=== PATIENT | female | born 1960 | race Caucasian/White ===

== ENCOUNTER 2017-09-06 09:27 | Emergency (ER) | payer MEDICAID ==
[~2017-09-06] VITALS: Ht 180.3 cm; Wt 137.8 kg
[~2017-09-06 09:27] MED LIST: ALBUTEROL SUL0.083 % IN; BACTRIM DS1 TAB PO; CIPRO500 MG OR; COQ1030 MG PO; DUONEB IN; FISH OIL1 CAP; FLEXERIL OR; FLEXERIL5 MG PO; LORTAB 10-325 M1 TAB PO; LORTAB 5 OR; LORTAB 7.5 OR; MULTI VIT PO; NO HOME MEDS; PENICILLN VK500 M1 OR; PENICILLN VK500 MG OR; PERCOCET 5/321 COMBO PO; PERCOCET 5/325M1 TAB OR; PROAIR HFA IN; PROVENTIL HFA IN; PROVENTIL HFA INH; PROVENTIL IN; PROVENTIL INH17 GM IN; PROVENTIL0.083 % IN; SPIRIVA HANDIHALER IN; TRAMADOL HCL50 MG OR; TRAMADOL HCL50 MG PO; ULTRAM50 M1 PO; ULTRAM50 MG OR; ULTRAM50 MG PO; VENTOLIN HF1 IN; [UNRECOGNIZED DRUG - OTHER] PO
[2017-09-06] MEDS ORDERED: KEFLEX500 MG PO (10:20)
[2017-09-06] MEDS ORDERED: BENADRYL 50MG C50 MG PO (10:20)
[2017-09-06] MEDS ORDERED: PREDNISONE50 MG PO (10:20)
[2017-09-06] MEDS ORDERED: SPIRIVA HANDIH18 MCG IN (10:22)
[2017-09-06] MEDS ORDERED: PROVENTIL108 MCG/AC IN (10:22)
[2017-09-06] MEDS ORDERED: OMEGA 31000 MG PO (10:24)
[2017-09-06 10:30] VITALS: BP 147/89
== END 2017-09-06 10:30 | disposition home or self-care (01) | DRG 916 ==
LOC: ED 09:27
DX: T78.40XA Allergy, unspecified, initial encounter (principal); L03.114 Cellulitis of left upper limb; L03.113 Cellulitis of right upper limb; X58.XXXA Exposure to other specified factors, initial encounter; R21 Rash and other nonspecific skin eruption; J44.9 Chronic obstructive pulmonary disease, unspecified; F17.210 Nicotine dependence, cigarettes, uncomplicated

== ENCOUNTER 2018-05-09 11:45 | Emergency (ER) | payer MEDICARE, MEDICAID ==
[~2018-05-09] VITALS: Ht 180.3 cm; Wt 131.8 kg
[~2018-05-09 11:45] MED LIST changes: +BENADRYL 50MG C50 MG PO; +KEFLEX500 MG PO; +OMEGA 31000 MG PO; +PREDNISONE50 MG PO; +PROVENTIL108 MCG/AC IN; +SPIRIVA HANDIH18 MCG IN
[2018-05-09] MEDS ORDERED: COQ-1050 MG PO (12:15)
[2018-05-09 13:37] VITALS: BP 154/97
[2018-05-09] MEDS ORDERED: VENTOLIN HFA IN (13:42)
[2018-05-09] MEDS ORDERED: PREDNISONE20 MG PO (13:42)
[2018-05-09] MEDS ORDERED: AMOXICILLIN875 MG PO (13:42)
[2018-05-09] MEDS ORDERED: TESSALON PER100 MG PO (13:42)
[2018-05-09] MEDS ORDERED: TRAMADOL HYDROC50 MG PO (13:42)
[2018-05-09] MEDS ORDERED: ZITHROMAX500 MG PO (13:42)
== END 2018-05-09 13:37 | disposition home or self-care (01) ==
LOC: ED 11:45
DX: R05 Cough (principal); J44.9 Chronic obstructive pulmonary disease, unspecified; M54.9 Dorsalgia, unspecified; F17.200 Nicotine dependence, unspecified, uncomplicated

== ENCOUNTER → 2018-06-09 | Outpatient (REF) | payer MEDICARE, MEDICAID ==
[~2018-06-09] MED LIST changes: +AMOXICILLIN875 MG PO; +COQ-1050 MG PO; +PREDNISONE20 MG PO; +TESSALON PER100 MG PO; +TRAMADOL HYDROC50 MG PO; +VENTOLIN HFA IN; +ZITHROMAX500 MG PO
== END | disposition home or self-care (01) ==
LOC: MAMMO 10:05
PROVIDERS: ATTEND Physician Assistant Medical
DX: Z12.31 Encounter for screening mammogram for malignant neoplasm of breast (principal); N95.1 Menopausal and female climacteric states

== ENCOUNTER 2018-07-20 11:01 | Emergency (ER) | payer MEDICARE, MEDICAID ==
[~2018-07-20] VITALS: Ht 180.3 cm; Wt 137.7 kg
[2018-07-20] MEDS ORDERED: SYMBICORT1 AE1 IN (11:31)
[2018-07-20] MEDS ORDERED: LOSARTAN POT50 MG PO (11:32)
[2018-07-20] MEDS ORDERED: KEFLEX500 M1 PO (11:48)
[2018-07-20] MEDS ORDERED: BACTROBAN TOP (11:48)
[2018-07-20 12:02] VITALS: BP 141/86
== END 2018-07-20 12:02 | disposition home or self-care (01) ==
LOC: ED 11:01
DX: S60.562A Insect bite (nonvenomous) of left hand, initial encounter (principal); L03.114 Cellulitis of left upper limb; L29.9 Pruritus, unspecified; W57.XXXA Bitten or stung by nonvenomous insect and other nonvenomous arthropods, initial encounter; Y92.009 Unspecified place in unspecified non-institutional (private) residence as the place of occurrence of the external cause

== ENCOUNTER 2018-10-29 06:13 | Day surgery (SDC) | payer MEDICARE, MEDICAID ==
[~2018-10-29] VITALS: Ht 180.3 cm; Wt 149.7 kg
[~2018-10-29 06:13] MED LIST changes: +BACTROBAN TOP; +KEFLEX500 M1 PO; +LOSARTAN POT50 MG PO; +SYMBICORT1 AE1 IN
[2018-10-29 07:49] VITALS: BP 122/69
[2018-11-11] MEDS ORDERED: TRAMADOL HCL50 MG PO (09:59)
== END 2018-10-29 08:10 | disposition home or self-care (01) ==
LOC: ORM 06:13
PROVIDERS: ATTEND Anesthesiology Pain Medicine
PROC: 3E0U33Z Introduction of Anti-inflammatory into Joints, Percutaneous Approach (ICD-10-PCS; principal; 2018-10-29)
PROC: 3E0U3BZ Introduction of Anesthetic Agent into Joints, Percutaneous Approach (ICD-10-PCS; 2018-10-29)
DX: M46.1 Sacroiliitis, not elsewhere classified (principal)

== ENCOUNTER 2019-01-14 10:44 | Emergency (ER) | payer MEDICARE, MEDICAID ==
[~2019-01-14] VITALS: Ht 180.3 cm; Wt 145.4 kg
[2019-01-14 11:21] LABS: IMMATURE GRANULOCYTES 0.4 % (0.0-5.0); MEAN CORPUSCULAR HGB 31.5 pG CALC (26.0-32.0); MEAN CORPUSCULAR HGB CONC 32.3 g/L CALC (32.0-36.0); NEUT# 2.7 thou/uL (2.00-7.15); RED BLOOD COUNT 5.69 mill/uL (4.20-5.60); RED CELL DISTRI WIDTH 13.8 % (11.5-15.5)
[2019-01-14 11:27] LABS: HEMATOCRIT 55.4 % (37.0-47.0); HEMOGLOBIN 17.9 g/dl (12.0-16.0); MEAN CELL VOLUME 97.4 fL CALC (80.0-100.0)
[2019-01-14 12:10] LABS: ALBUMIN 4.2 g/dL (3.2-5.0); ALKALINE PHOSPHATASE 77 u/l (38-126); BILIRUBIN, TOTAL 0.8 mg/dL (0.0-1.4); BUN 7 mg/dL (7-17); BUN/CREATININE RATIO 14 (12-20 (CALC)); CHLORIDE 98 mmol/l (95-108); CREATININE 0.5 mg/dL (0.5-1.0); GFR > 60 ML/MIN (>=60 (CALC)); GFR FOR AFR.AMER. > 60 ML/MIN (>=60 (CALC)); SGOT/AST 35 u/l (14-36); SODIUM 135 mmol/l (137-146); TOTAL PROTEIN 7.6 g/dL (6.3-8.2)
[2019-01-14 12:15] LABS: ANION GAP 13 (6-22 (CALC)); CARBON DIOXIDE 29 mmol/l (22-30); POTASSIUM 4.7 mmol/l (3.5-5.1)
[2019-01-14] MEDS ORDERED: DOXYCYCL HYC100 MG PO (12:37)
[2019-01-14] MEDS ORDERED: STERAPRED DS10 MG PO (12:37)
[2019-01-14 12:58] VITALS: BP 149/72
== END 2019-01-14 13:03 | disposition home or self-care (01) ==
LOC: ED 10:44
PROVIDERS: Family Medicine
DX: J44.0 Chronic obstructive pulmonary disease with (acute) lower respiratory infection (principal); J44.1 Chronic obstructive pulmonary disease with (acute) exacerbation; I10 Essential (primary) hypertension; F17.200 Nicotine dependence, unspecified, uncomplicated

== ENCOUNTER 2019-11-15 20:00 | Emergency (ER) | payer MEDICARE, MEDICAID ==
[~2019-11-15] VITALS: Ht 180.3 cm; Wt 131.8 kg
[~2019-11-15 20:00] MED LIST changes: +DOXYCYCL HYC100 MG PO; -LOSARTAN POT50 MG PO; +LOSARTAN POTASS50 MG PO; +STERAPRED DS10 MG PO
[2019-11-15] MEDS ORDERED: VENTOLIN H108 MCG/AC IN (20:23)
[2019-11-15] MEDS ORDERED: ALENDRONATE SOD70 MG PO (20:24)
[2019-11-15] MEDS ORDERED: ADVAIR DISK1 IN (20:25)
[2019-11-15] MEDS ORDERED: HYDROCHLOROT12.5 MG PO (20:25)
[2019-11-15] MEDS ORDERED: IPRATROPIU0.5 MG/3 M IN (20:25)
[2019-11-15 20:49] LABS: HEMATOCRIT 55.1 % (37.0-47.0); HEMOGLOBIN 17.8 g/dl (12.0-16.0); IMMATURE GRANULOCYTES 0.3 % (0.0-5.0); MEAN CELL VOLUME 97.2 fL CALC (80.0-100.0); MEAN CORPUSCULAR HGB 31.4 pG CALC (26.0-32.0); MEAN CORPUSCULAR HGB CONC 32.3 g/dL CAL (32.0-36.0); NEUT# 4.61 thou/uL (2.00-7.15); RED BLOOD COUNT 5.67 mill/uL (4.20-5.60); RED CELL DISTRI WIDTH 13.7 % (11.5-15.5)
--- NOTE | 2019-11-15 20:54 | NUR ---
BREATHING TREATMENT GIVEN BACK TO BACK. BREATHING TECH. FOR GOOD DEPOSITION TO THE LUNGS.
[2019-11-15 21:36] VITALS: BP 142/64
[2019-11-15] MEDS ORDERED: DOXYCYCL HYC100 MG PO (21:53)
[2019-11-15] MEDS ORDERED: PREDNISONE50 MG PO (21:53)
== END 2019-11-15 22:00 | disposition home or self-care (01) ==
LOC: ED 20:00
PROVIDERS: Family Medicine
DX: J44.1 Chronic obstructive pulmonary disease with (acute) exacerbation (principal); I10 Essential (primary) hypertension; F17.200 Nicotine dependence, unspecified, uncomplicated; Z20.828 Contact with and (suspected) exposure to other viral communicable diseases

== ENCOUNTER 2020-09-17 05:37 | Observation (INO) | payer MEDICARE, MEDICAID ==
[~2020-09-17] VITALS: Ht 180.3 cm; Wt 141.0 kg
[~2020-09-17 05:37] MED LIST changes: +ADVAIR DISK1 IN; +ALENDRONATE SOD70 MG PO; +HYDROCHLOROT12.5 MG PO; +IPRATROPIU0.5 MG/3 M IN; +VENTOLIN H108 MCG/AC IN
--- NOTE | 2020-09-17 05:37 | NUR ---
BY EMS TO ROOM. MOVED TO STRETCHER INDEPENDENTLY.
[2020-09-17 06:08] LABS: IMMATURE GRANULOCYTES 0.2 % (0.0-5.0); MEAN CORPUSCULAR HGB CONC 35.3 g/dL CAL (32.0-36.0); NEUT# 3.13 thou/uL (2.00-7.15); RED BLOOD COUNT 5.62 mill/uL (4.20-5.60); RED CELL DISTRI WIDTH 12.2 % (11.5-15.5)
[2020-09-17 06:09] LABS: MEAN CELL VOLUME 90.7 fL CALC (80.0-100.0)
--- NOTE | 2020-09-17 06:30 | NUR ---
STATES FEELING BETTER. AWAITING DISPO.
[2020-09-17] MEDS ORDERED: TRELEGY ELLIPTA1 AER IN (06:31)
[2020-09-17] MEDS ORDERED: SYMBICORT1 AE1 IN (06:32)
--- NOTE | 2020-09-17 07:00 | NUR ---
RECEIVED REPORT FROM DALLIN
[2020-09-17] MEDS ORDERED: ALENDRONATE SOD70 MG PO (07:30)
[2020-09-17] MEDS ORDERED: INCRUSE EL62.5 MCG/I IN (07:30)
[2020-09-17] MEDS ORDERED: FLOVENT HF220 MCG/AC IN (07:30)
--- NOTE | 2020-09-17 07:59 | NUR ---
REPORT REC FROM Dejah LOPEZ RN
--- NOTE | 2020-09-17 07:59 | NUR ---
GAVE REPORT TO TONYA
[2020-09-17 08:10] VITALS: BP 149/81
--- NOTE | 2020-09-17 08:10 | NUR ---
PT SITTING IN BED. PT ALERT AND ORIENTED. VITALS AND ASSESMENT PERFORMED. S1 AND S2 HEARD. LUNGS SOUNDS CLEAR/DIMINISHED. PEDAL PULSES EQUALLY STRONG BILATERALLY. SKIN TEAR TO RIGHT FOREARM. PICTURE OBTAINED AND STERI STRIPS APPLIED.
--- NOTE | 2020-09-17 08:12 | NUR ---
PT ASSISTED UP TO MED SURG STABLE AND IN NO DISTRESS VIA W//C. BELONGINGS WITH HER. CARE ASSUMED TO Admission Note Report Given to: ELIAZAR Transported by: X Wheelchair Stretcher Transported with: X Nurse Transporter Patent IV O2 Engineering Officer Location: ICU X MS2
[2020-09-17 10:45] LABS: ALBUMIN 4.5 g/dL (3.2-5.0); ALKALINE PHOSPHATASE 81 u/l (38-126); BUN 7 mg/dL (7-17); BUN/CREATININE RATIO 19 (12-20 (CALC)); CARBON DIOXIDE 27 mmol/l (22-30); CREATININE 0.4 mg/dL (0.5-1.0); GFR > 60 ML/MIN (>=60 (CALC)); GFR FOR AFR.AMER. > 60 ML/MIN (>=60 (CALC)); SGOT/AST 43 u/l (14-36); TOTAL PROTEIN 7.8 g/dL (6.3-8.2)
--- NOTE | 2020-09-17 10:48 | NUR ---
CALL REC FROM [facility], [place], CRITICAL SODIUM LAB RESULT OF 117, RESULTS GIVEN TO A LUAREN ARMSTRONG. TREATMENT IN PLACE, IVF AND HCTZ HOLD. NO FURTHER ORDERS AT THIS TIME.
[2020-09-17 10:49] LABS: ANION GAP 15 (6-22 (CALC)); BILIRUBIN, TOTAL 1.2 mg/dL (0.0-1.4); CHLORIDE 79 mmol/l (95-108); SODIUM 117 mmol/l (137-146)
--- NOTE | 2020-09-17 12:00 | NUR ---
PT SITTING ON THE SIDE OF THE BED. NO DISTRESS NOTED. CALL LIGHT WITHIN REACH.
--- NOTE | 2020-09-17 12:34 | NUR ---
PT RESTING COMFORTABLY C NAD. VSS. LAYING IN BED ON LEFT SIDE. BUTANE COMPRESSOR OPERATOR TO MONITOR.
[2020-09-17 15:20] VITALS: BP 150/80
--- NOTE | 2020-09-17 16:16 | NUR ---
PT IN BED RESTING COMFORTABLY. NO DISTRESS NOTED. CALL LIGHT WITHIN REACH.
--- NOTE | 2020-09-17 16:18 | NUR ---
PT RESTING COMFRTABLY IN BED, LAYING ON SIDE AND WATCHING TELEVISION. EXPWHZ CAN BE ASCULTATED. NAD. VSS. LINE DEPARTMENT SUPERVISOR TO MONITOR.
--- NOTE | 2020-09-17 19:00 | NUR ---
REPORT RECEIVED FROM Karina FERREIRA RN, CARE OF PT ASSUMED AT THIS TIME.
[2020-09-17 20:00] VITALS: BP 145/81
--- NOTE | 2020-09-17 20:15 | NUR ---
PT SEMIFOWLERS IN BED, WATCHING TV. NO APPARENT DISTRESS OR DISCOMFORT. PHYSICAL ASSESMENT COMPLETE. RESPIRATIONS REGULAR AND UNLABORED. LUNG SOUNDS CLEAR AND DIMINSIHED. PRODUCTIVE COUGH WITH THIN, CLEAR SPUTUM. SPO2 92% ON ROOM AIR. L-H #22G IV PATENT AND INFUSING NS @100ML/H. R-FOREARM SKIN TEAR WITH STERI-STRIPS C/D/I. 800ML CLEAR YELLOW URINE EMPTIED FROM SPECIMEN COLLECTION CONTAINER IN TOILET. PT REQUESTS SNACK. ICE CREAM CUP AND NUTRIGRAIN BAR PROVIDED. PT DENIES FURTHER NEEDS AT THIS TIME. PLAN OF CARE REVIEWED. PT VERBALIZES UNDERSTANDING. CALL [facility] WITHIN REACH, AGREES TO CALL PRN.
--- NOTE | 2020-09-18 00:26 | NUR ---
PT APPEARS TO BE SLEEPING COMFORTABLY, LAYING IN BED, EYES CLOSED, RESPIRATIONS REGULAR AND UNLABORED. NO APPARENT DISTRESS. CALL [facility] REMAINS WITHIN REACH.
[2020-09-18 04:00] VITALS: BP 133/70
[2020-09-18 05:00] LABS: HEMATOCRIT 49.7 % (37.0-47.0); HEMOGLOBIN 17.1 g/dl (12.0-16.0); IMMATURE GRANULOCYTES 0.3 % (0.0-5.0); MEAN CELL VOLUME 94.1 fL CALC (80.0-100.0); MEAN CORPUSCULAR HGB 32.4 pG CALC (26.0-32.0); MEAN CORPUSCULAR HGB CONC 34.4 g/dL CAL (32.0-36.0); NEUT# 5.43 thou/uL (2.00-7.15); RED BLOOD COUNT 5.28 mill/uL (4.20-5.60); RED CELL DISTRI WIDTH 12.5 % (11.5-15.5)
[2020-09-18 05:09] LABS: ALKALINE PHOSPHATASE 58 u/l (38-126); BUN 7 mg/dL (7-17); BUN/CREATININE RATIO 21 (12-20 (CALC)); CARBON DIOXIDE 31 mmol/l (22-30); CREATININE 0.3 mg/dL (0.5-1.0); GFR > 60 ML/MIN (>=60 (CALC)); GFR FOR AFR.AMER. > 60 ML/MIN (>=60 (CALC)); POTASSIUM 3.8 mmol/l (3.5-5.1); SGOT/AST 29 u/l (14-36)
[2020-09-18 05:18] LABS: ANION GAP 9 (6-22 (CALC)); BILIRUBIN, TOTAL 0.7 mg/dL (0.0-1.4); CHLORIDE 89 mmol/l (95-108); SODIUM 125 mmol/l (137-146)
[2020-09-18 07:20] VITALS: BP 141/90
--- NOTE | 2020-09-18 07:20 | NUR ---
PATIENT LAYING IN BED AT THIS TIME DENIES ANY SHORTNESS OF BREATH SPO2 AT THIS TIME IS 92%. LUNGS SOUNDS ARE CLEAR IN ALL LUNG DE JESUS AT THIS TIME. PATIENT DOES HAVE SKIN TEAR ON R FOREARM AND STERI-STRIPS ARE IN PLACE AND INTACT. SIDERAILS ARE UP X 2 CALL LIGHT WITHIN REACH. CLAIMS CUSTOMER SERVICE REPRESENTATIVE DONE SEE INTERVENTIONS. PATIENT STATES "IM GOING HOME TODAY". WILL CONTINUE TO MONITOR.
[2020-09-18 08:29] VITALS: BP 141/90
[2020-09-18] MEDS ORDERED: DOXYCYCL HYC100 MG PO (10:03)
[2020-09-18] MEDS ORDERED: PREDNISONE10 MG PO (10:05)
[2020-09-18] MEDS ORDERED: NICOTINE S21 MG/24 H TD (10:05)
--- NOTE | 2020-09-18 12:00 | NUR ---
PATIENT D/C AT THIS PATIENT VERBALIZES UNDERSTANDING OF D/C INSTRUCTIONS. NICOTINE PATCH REMOVED AT THIS TIME IV REMOVED TIP INTACT.
--- NOTE | 2020-09-18 12:40 | NUR ---
Discharge instructions given. Patient verbalizes understanding of same. Discharged in stable condition via Wheelchair to Home with family. All belongings sent with pt.
== END 2020-09-18 12:40 | disposition home or self-care (01) ==
LOC: ED 05:37 → MS2 06:50
PROVIDERS: Family Medicine; Nurse Practitioner Family; ADMIT Internal Medicine; ATTEND Internal Medicine
DX: J44.1 Chronic obstructive pulmonary disease with (acute) exacerbation (principal); E87.1 Hypo-osmolality and hyponatremia; T50.2X5A Adverse effect of carbonic-anhydrase inhibitors, benzothiadiazides and other diuretics, initial encounter; D45 Polycythemia vera; I10 Essential (primary) hypertension; M54.9 Dorsalgia, unspecified; G89.29 Other chronic pain; E66.01 Morbid (severe) obesity due to excess calories; F17.200 Nicotine dependence, unspecified, uncomplicated; Z20.822 Contact with and (suspected) exposure to COVID-19
CPT/HCPCS: G0378; J1650

== ENCOUNTER 2020-12-19 08:28 | Emergency (ER) | payer MEDICARE, MEDICAID ==
[~2020-12-19] VITALS: Ht 180.3 cm; Wt 126.0 kg
[~2020-12-19 08:28] MED LIST changes: +FLOVENT HF220 MCG/AC IN; +INCRUSE EL62.5 MCG/I IN; +NICOTINE S21 MG/24 H TD; +PREDNISONE10 MG PO; +TRELEGY ELLIPTA1 AER IN
[2020-12-19 09:32] LABS: URINE BILIRUBIN - DIPSTICK NEGATIVE (NEGATIVE); URINE BLOOD DIPSTICK NEGATIVE (NEGATIVE); URINE COLOR YELLOW; URINE GLUCOSE - DIPSTICK NEGATIVE (NEGATIVE); URINE KETONE NEGATIVE (NEGATIVE); URINE LEUK ESTERASE NEGATIVE (NEGATIVE); URINE PH 6.5 (4.5-8.0); URINE PROTEIN - DIPSTICK NEGATIVE (NEG-TRACE); URINE UROBILINOGEN - DIPSTICK 0.2 E.U./dL (0.2)
[2020-12-19 09:33] LABS: MEAN CORPUSCULAR HGB 32.7 pG CALC (26.0-32.0); MEAN CORPUSCULAR HGB CONC 33.3 g/dL CAL (32.0-36.0); NEUT# 2.83 thou/uL (2.00-7.15); RED BLOOD COUNT 5.94 mill/uL (4.20-5.60); RED CELL DISTRI WIDTH 12.9 % (11.5-15.5)
[2020-12-19 09:33] LABS: URINE NITRITE - DIPSTICK NEGATIVE (Negative)
[2020-12-19 09:35] LABS: HEMATOCRIT 58.2 % (37.0-47.0); HEMOGLOBIN 19.4 g/dl (12.0-16.0)
[2020-12-19 09:54] LABS: ALBUMIN 4.6 g/dL (3.2-5.0); ALKALINE PHOSPHATASE 78 u/l (38-126); AMYLASE 50 u/l (30-110); BUN 6 mg/dL (7-17); BUN/CREATININE RATIO 12 (12-20 (CALC)); CARBON DIOXIDE 27 mmol/l (22-30); CHLORIDE 97 mmol/l (95-108); CREATININE 0.5 mg/dL (0.5-1.0); GFR > 60 ML/MIN (>=60 (CALC)); GFR FOR AFR.AMER. > 60 ML/MIN (>=60 (CALC)); LIPASE 70 u/l (23-300); POTASSIUM 4.3 mmol/l (3.5-5.1); SGOT/AST 49 u/l (14-36); TOTAL PROTEIN 8.1 g/dL (6.3-8.2)
[2020-12-19 09:55] LABS: ANION GAP 14 (6-22 (CALC)); BILIRUBIN, TOTAL 1.2 mg/dL (0.0-1.4); SODIUM 134 mmol/l (137-146)
[2020-12-19 12:26] VITALS: BP 159/85
== END 2020-12-19 12:38 | disposition home or self-care (01) ==
LOC: ED 08:28
PROVIDERS: Family Medicine
DX: R10.84 Generalized abdominal pain (principal); I10 Essential (primary) hypertension; J44.9 Chronic obstructive pulmonary disease, unspecified; M54.9 Dorsalgia, unspecified; G89.29 Other chronic pain; F17.200 Nicotine dependence, unspecified, uncomplicated
CPT/HCPCS: Q9967